=== PATIENT | female | born 1955 | race Two or more races ===

== ENCOUNTER 2017-11-02 08:01 | Outpatient (CLI) | payer OTHER ==
[~2017-11-02 08:01] MED LIST: ACYCLOVIR15 GM TOP; ALDACTONE25 MG PO; ATORVASTATIN CA40 MG; ATORVASTATIN CA40 MG PO; BRILINTA90 MG PO; COREG 12.5 MG PO; GLIMEPIRIDE2 MG; GLIMEPIRIDE2 MG PO; LASIX40 MG PO; LIPITOR40 MG PO; MECLIZINE HCL12.5 MG; MECLIZINE HCL12.5 MG PO; PARAFON FORTE500 MG PO; PEPCID AC20 MG PO; VASOTEC2.5 MG; VASOTEC2.5 MG PO; ZOVIRAX5 GM TOP; ZOVIRAX800 MG PO
== END 2017-11-02 08:13 | disposition home or self-care (01) ==
LOC: LAB 08:01
DX: E08.9 Diabetes mellitus due to underlying condition without complications (principal)

== ENCOUNTER 2017-11-29 08:48 | Outpatient (CLI) | payer OTHER | END 2017-11-29 08:52 | disposition home or self-care (01) | LOC: RAD 08:48 | DX: I10 Essential (primary) hypertension (principal) ==

== ENCOUNTER 2018-05-30 07:46 | Outpatient (CLI) | payer OTHER | END 2018-05-30 07:56 | disposition home or self-care (01) | LOC: LAB 07:46 | DX: E78.00 Pure hypercholesterolemia, unspecified (principal); I50.22 Chronic systolic (congestive) heart failure; E11.69 Type 2 diabetes mellitus with other specified complication; I11.0 Hypertensive heart disease with heart failure ==

== ENCOUNTER 2018-08-08 08:35 | Outpatient (CLI) | payer OTHER | END 2018-08-08 08:53 | disposition home or self-care (01) | LOC: LAB 08:35 | DX: J06.9 Acute upper respiratory infection, unspecified (principal) ==

== ENCOUNTER 2018-09-13 08:52 | Outpatient (CLI) | payer OTHER | END 2018-09-13 11:37 | disposition home or self-care (01) | LOC: LAB 08:52 | DX: H25.012 Cortical age-related cataract, left eye (principal); Z98.42 Cataract extraction status, left eye ==

== ENCOUNTER 2018-10-31 14:24 | Outpatient (CLI) | payer OTHER | END 2018-10-31 14:28 | disposition home or self-care (01) | LOC: RAD 14:24 | DX: M25.552 Pain in left hip (principal) ==

== ENCOUNTER 2018-11-15 12:41 | Outpatient (CLI) | payer OTHER | END 2018-11-15 12:43 | disposition home or self-care (01) | LOC: RAD 12:41 | DX: M54.5 Low back pain (principal); M54.16 Radiculopathy, lumbar region ==

== ENCOUNTER 2018-12-19 07:51 | Outpatient (CLI) | payer OTHER | END 2018-12-19 15:00 | disposition home or self-care (01) | LOC: LAB 07:51 | DX: I10 Essential (primary) hypertension (principal); E11.9 Type 2 diabetes mellitus without complications; Z11.3 Encounter for screening for infections with a predominantly sexual mode of transmission; Z11.4 Encounter for screening for human immunodeficiency virus [HIV] ==

== ENCOUNTER 2019-03-05 09:30 | Outpatient (CLI) | payer OTHER | END 2019-03-05 09:34 | disposition home or self-care (01) | LOC: RAD 09:30 | DX: M54.89 Other dorsalgia (principal) ==

== ENCOUNTER → 2019-04-25 07:33 | Outpatient (CLI) | payer OTHER | END | disposition home or self-care (01) | LOC: LAB 07:33 | DX: M17.12 Unilateral primary osteoarthritis, left knee (principal); E78.49 Other hyperlipidemia; Z00.00 Encounter for general adult medical examination without abnormal findings; R42 Dizziness and giddiness; E11.9 Type 2 diabetes mellitus without complications ==

== ENCOUNTER 2019-05-08 08:33 | Outpatient (CLI) | payer OTHER | END 2019-05-08 08:49 | disposition home or self-care (01) | LOC: SONOGRAMA 08:33 | DX: R10.84 Generalized abdominal pain (principal) ==

== ENCOUNTER 2020-01-03 09:52 | Outpatient (CLI) | payer OTHER | END 2020-01-03 10:00 | disposition home or self-care (01) | LOC: LAB 09:52 | DX: J11.1 Influenza due to unidentified influenza virus with other respiratory manifestations (principal) ==

== ENCOUNTER 2020-05-09 07:35 | Outpatient (CLI) | payer OTHER | END 2020-05-09 15:00 | disposition home or self-care (01) | LOC: LAB 07:35 | PROVIDERS: ATTEND General Practice | DX: R10.84 Generalized abdominal pain (principal); R10.2 Pelvic and perineal pain; K29.00 Acute gastritis without bleeding; E11.59 Type 2 diabetes mellitus with other circulatory complications ==

== ENCOUNTER 2020-05-09 07:36 | Outpatient (CLI) | payer OTHER | END 2020-05-09 07:37 | disposition home or self-care (01) | LOC: SONOGRAMA 07:36 → MAMO-SONO 08:15 | PROVIDERS: ATTEND General Practice | DX: R10.84 Generalized abdominal pain (principal); R10.2 Pelvic and perineal pain ==

== ENCOUNTER → 2020-05-10 10:18 | Outpatient (CLI) | payer OTHER | END | disposition home or self-care (01) | LOC: LAB 10:18 | PROVIDERS: ATTEND General Practice | DX: R10.84 Generalized abdominal pain (principal); R10.2 Pelvic and perineal pain; Z20.828 Contact with and (suspected) exposure to other viral communicable diseases; K29.00 Acute gastritis without bleeding; E11.59 Type 2 diabetes mellitus with other circulatory complications ==

== ENCOUNTER 2020-07-03 13:07 | Emergency (ER) | payer OTHER ==
[~2020-07-03] VITALS: Ht 124.5 cm; Wt 71.7 kg
[2020-07-03] MEDS ORDERED: CARVEDILOL3.125 M1 (13:30)
== END 2020-07-03 15:36 | disposition home or self-care (01) ==
LOC: ER 13:07
DX: S61.221A Laceration with foreign body of left index finger without damage to nail, initial encounter (principal); W26.0XXA Contact with knife, initial encounter; Y93.89 Activity, other specified; Y92.018 Other place in single-family (private) house as the place of occurrence of the external cause; Y99.8 Other external cause status

== ENCOUNTER → 2020-07-07 | Emergency (ER) | payer OTHER ==
[~2020-07-07] MED LIST changes: +CARVEDILOL3.125 M1
== END | disposition left against medical advice (07) ==
LOC: ER 08:55
DX: Z53.21 Procedure and treatment not carried out due to patient leaving prior to being seen by health care provider (principal)

== ENCOUNTER 2020-07-10 08:28 | Emergency (ER) | payer OTHER ==
[~2020-07-10] VITALS: Ht 144.8 cm; Wt 69.4 kg
== END 2020-07-10 10:00 | disposition home or self-care (01) ==
LOC: ER 08:28
DX: Z48.02 Encounter for removal of sutures (principal)

== ENCOUNTER 2020-09-30 10:57 | Outpatient (CLI) | payer OTHER | END 2020-09-30 11:07 | disposition home or self-care (01) | LOC: RAD 10:57 | PROVIDERS: ATTEND General Practice | DX: M54.2 Cervicalgia (principal) ==

== ENCOUNTER 2020-12-01 11:44 | Emergency (ER) | payer OTHER ==
[~2020-12-01] VITALS: Ht 149.9 cm; Wt 61.2 kg
== END 2020-12-01 14:11 | disposition home or self-care (01) ==
LOC: ER 11:44
DX: R21 Rash and other nonspecific skin eruption (principal); T78.49XA Other allergy, initial encounter

== ENCOUNTER 2020-12-17 08:46 | Outpatient (CLI) | payer OTHER | END 2020-12-17 08:56 | disposition home or self-care (01) | LOC: LAB 08:46 | PROVIDERS: ATTEND General Practice | DX: E11.9 Type 2 diabetes mellitus without complications (principal); I10 Essential (primary) hypertension; E78.49 Other hyperlipidemia; E55.9 Vitamin D deficiency, unspecified; Z00.00 Encounter for general adult medical examination without abnormal findings ==

== ENCOUNTER 2020-12-19 09:12 | Emergency (ER) | payer OTHER ==
[~2020-12-19] VITALS: Ht 144.8 cm; Wt 115.7 kg
[2020-12-19] MEDS ORDERED: CIPRO500 MG PO (10:09)
== END 2020-12-19 11:26 | disposition home or self-care (01) ==
LOC: ER 09:12
DX: N39.0 Urinary tract infection, site not specified (principal); B96.89 Other specified bacterial agents as the cause of diseases classified elsewhere

== ENCOUNTER → 2020-12-27 | Emergency (ER) | payer OTHER ==
[~2020-12-27] MED LIST changes: +CIPRO500 MG PO
== END | disposition left against medical advice (07) ==
LOC: ER 09:42
DX: Z53.20 Procedure and treatment not carried out because of patient's decision for unspecified reasons (principal)

== ENCOUNTER 2021-02-03 08:46 | Emergency (ER) | payer OTHER ==
[~2021-02-03] VITALS: Ht 132.1 cm; Wt 72.6 kg
[2021-02-03] MEDS ORDERED: CIPRO500 MG PO (10:56)
[2021-02-03] MEDS ORDERED: MUPIROCIN15 GM TOP (10:56)
== END 2021-02-03 10:58 | disposition home or self-care (01) ==
LOC: ER 08:46
DX: L97.818 Non-pressure chronic ulcer of other part of right lower leg with other specified severity (principal); T79.8XXA Other early complications of trauma, initial encounter; S80.11XS Contusion of right lower leg, sequela; W01.198S Fall on same level from slipping, tripping and stumbling with subsequent striking against other object, sequela

== ENCOUNTER 2021-03-31 09:53 | Outpatient (CLI) | payer OTHER ==
[~2021-03-31 09:53] MED LIST changes: +MUPIROCIN15 GM TOP
== END 2021-03-31 09:58 | disposition home or self-care (01) ==
LOC: LAB 09:53
PROVIDERS: ATTEND Internal Medicine
DX: D50.0 Iron deficiency anemia secondary to blood loss (chronic) (principal); E11.69 Type 2 diabetes mellitus with other specified complication; E11.22 Type 2 diabetes mellitus with diabetic chronic kidney disease

== ENCOUNTER 2022-03-23 08:06 | Outpatient (CLI) | payer OTHER | END 2022-03-23 08:15 | disposition home or self-care (01) | LOC: LAB 08:06 | PROVIDERS: ATTEND Internal Medicine | DX: D64.9 Anemia, unspecified (principal); R73.09 Other abnormal glucose; E03.9 Hypothyroidism, unspecified; E78.5 Hyperlipidemia, unspecified; R80.9 Proteinuria, unspecified ==

== ENCOUNTER 2022-06-01 08:14 | Outpatient (CLI) | payer OTHER | END 2022-06-01 08:15 | disposition home or self-care (01) | LOC: LAB 08:14 | PROVIDERS: ATTEND Internal Medicine | DX: D64.9 Anemia, unspecified (principal); N39.0 Urinary tract infection, site not specified; E11.69 Type 2 diabetes mellitus with other specified complication; E78.5 Hyperlipidemia, unspecified; R80.9 Proteinuria, unspecified; Z12.11 Encounter for screening for malignant neoplasm of colon ==

== ENCOUNTER 2022-07-09 10:36 | Outpatient (CLI) | payer OTHER | END 2022-07-09 10:49 | disposition home or self-care (01) | LOC: MAMO-SONO 10:36 | PROVIDERS: ATTEND Internal Medicine | DX: Z12.31 Encounter for screening mammogram for malignant neoplasm of breast (principal) ==

== ENCOUNTER 2022-07-13 09:50 | Outpatient (CLI) | payer OTHER | END 2022-07-13 09:58 | disposition home or self-care (01) | LOC: LAB 09:50 | PROVIDERS: ATTEND Radiology Diagnostic Radiology | DX: K43.2 Incisional hernia without obstruction or gangrene (principal) ==

== ENCOUNTER 2022-09-01 08:37 | Outpatient (CLI) | payer OTHER | END 2022-09-01 08:51 | disposition home or self-care (01) | LOC: LAB 08:37 | DX: N39.0 Urinary tract infection, site not specified (principal); R80.9 Proteinuria, unspecified; E11.9 Type 2 diabetes mellitus without complications; E78.5 Hyperlipidemia, unspecified; E11.65 Type 2 diabetes mellitus with hyperglycemia; E78.2 Mixed hyperlipidemia; I10 Essential (primary) hypertension ==

== ENCOUNTER → 2022-12-07 08:52 | Outpatient (CLI) | payer OTHER | END | disposition home or self-care (01) | LOC: LAB 08:52 | PROVIDERS: ATTEND Internal Medicine | DX: D64.9 Anemia, unspecified (principal); R73.09 Other abnormal glucose; E78.5 Hyperlipidemia, unspecified; R80.9 Proteinuria, unspecified ==

== ENCOUNTER 2023-04-05 08:14 | Outpatient (CLI) | payer OTHER | END 2023-04-05 08:24 | disposition home or self-care (01) | LOC: LAB 08:14 | PROVIDERS: ATTEND Internal Medicine | DX: D64.9 Anemia, unspecified (principal); N39.0 Urinary tract infection, site not specified; E11.69 Type 2 diabetes mellitus with other specified complication; K76.0 Fatty (change of) liver, not elsewhere classified; E11.22 Type 2 diabetes mellitus with diabetic chronic kidney disease; E03.9 Hypothyroidism, unspecified; R80.9 Proteinuria, unspecified; E78.5 Hyperlipidemia, unspecified; E11.65 Type 2 diabetes mellitus with hyperglycemia; E03.8 Other specified hypothyroidism; I10 Essential (primary) hypertension; E78.2 Mixed hyperlipidemia; C73 Malignant neoplasm of thyroid gland ==

== ENCOUNTER 2024-04-23 10:12 | Outpatient (CLI) | payer OTHER | END 2024-04-23 10:18 | disposition home or self-care (01) | LOC: TOM 10:12 | PROVIDERS: ATTEND Internal Medicine Cardiovascular Disease | DX: R19.00 Intra-abdominal and pelvic swelling, mass and lump, unspecified site (principal) ==